=== PATIENT | female | born 1965 | race Caucasian/White ===

== ENCOUNTER → 2017-06-27 | Outpatient (CLI) | payer OTHER, BC ==
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
--- NOTE | 2017-06-27 11:38 | Diagnostic Imaging Report ---
EXAMINATION: Abdomen supine and erect. INDICATION: Pain There are no prior studies available for comparison. There is some gas in both the large and small bowel in a nonspecific fashion. There is no evidence for a bowel obstruction. There is no mass or organomegaly appreciated. There is a 1 CM well-defined oval calcification overlying the left upper quadrant. This is of uncertain etiology. This does not have the typical appearance for nephrolithiasis. If further study is desired, then CT would be recommended. The osseous structures, where visualized are intact. IMPRESSION: 1. The bowel gas pattern is nonspecific. There is no acute abnormality identified. 2. The benign-appearing 1 CM calcification overlying the left upper quadrant is of uncertain etiology. Additional considerations as above. Dictated by: Dictated on workstation # [id number]
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
== END ==
LOC: RAD 10:25
PROVIDERS: ATTEND Nurse Practitioner Family
DX: R07.89 Other chest pain (principal); R10.12 Left upper quadrant pain; R14.0 Abdominal distension (gaseous); V89.2XXA Person injured in unspecified motor-vehicle accident, traffic, initial encounter
CPT/HCPCS: 71046; 74019; 76705

== ENCOUNTER → 2017-07-03 | Outpatient (CLI) | payer BC, OTHER ==
[~2017-07-03] MED LIST: CATHETER FLUSH 10 ML SYR IV PRN; IOHEXOL 350 MG/ML 100 ML (OMNIPAQUE 350) VIAL IV ONE; NS 100 ML (IVPB) BAG IV ONE
[2017-07-03 10:42] LABS: BUN/CREATININE RATIO 19; CREATININE SERUM 0.95 MG/DL (0.60-1.30); GFR ESTIMATED > 60
--- NOTE | 2017-07-03 13:44 | Diagnostic Imaging Report ---
PROCEDURE: CT of the abdomen with and without contrast and CT of the pelvis with contrast. TECHNIQUE: Precontrast acquisitions were acquired through the abdomen. Multiple contiguous axial images were obtained through the abdomen and pelvis after administration of intravenous contrast. INDICATION: Left upper quadrant nodule. FINDINGS: The abdomen exam performed on 06/27/17 noted a well-defined 1 cm oval calcification overlying the left upper quadrant. On this exam, that calcific density appears to represent a small pleural-based calcification deep in the left lung base. This calcification has a generally benign appearance. The lung bases are otherwise clear. On the pre-intravenous contrast series, there is no sign of nephrolithiasis. Following administration of contrast, there was excretion by both kidneys. The right kidney is slightly malrotated. There is a collection of parapelvic cysts along the anterior aspect of the right kidney. These cysts have a generally benign appearance. There is no evidence for a solid renal mass involving either kidney. The liver is of lower density than usually seen. 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 The spleen, pancreas, adrenals, gallbladder, aorta and inferior vena cava show no sign of an acute abnormality. The stomach is partially filled with fluid and consequently difficult to assess. 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 The urinary bladder is grossly unremarkable. The appendix was not well visualized but there are no indirect signs of acute appendicitis. The bone windows show no sign of a fracture or of a destructive lesion. IMPRESSION: 1. The oval calcification overlying the left upper quadrant seen on the recent abdomen exam is felt to be related to a calcification along the posterior aspect of the left lung base. This calcification is most likely a benign process. 2. There is no acute abnormality of the abdomen or pelvis. 3. The appearance of the liver does suggest fatty metamorphosis. 4. The right kidney is slightly malrotated but there is no obstruction of the right collecting system. 5. 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 Dictated by: Dictated on workstation # [id number]
== END ==
LOC: RAD 10:07
PROVIDERS: ATTEND Nurse Practitioner Family
DX: R19.02 Left upper quadrant abdominal swelling, mass and lump (principal); R91.8 Other nonspecific abnormal finding of lung field; Q51.0 Agenesis and aplasia of uterus
CPT/HCPCS: 36415; 74178; 82565; 84520

== ENCOUNTER → 2018-05-20 | Outpatient (CLI) | payer BC ==
--- NOTE | 2018-05-21 13:15 | Diagnostic Imaging Report ---
INDICATION: Routine screening. No prior mammograms are available for comparison. 2-D and 3-D bilateral screening mammography was performed with computer-aided Detection (CAD) system. FINDINGS: Both breasts are heterogeneously dense, limiting the sensitivity of mammography. No mass or malignant-appearing microcalcifications are seen. The axillae are unremarkable. IMPRESSION: No mammographic features suspicious for malignancy are identified. ACR BI-RADS Category 1: Negative. Result letter will be mailed to the patient. Note: At least 10% of breast cancer is not imaged by mammography. Dictated by: Dictated on workstation # [id number]
== END ==
LOC: RAD 14:35
PROVIDERS: ATTEND Family Medicine
DX: Z12.31 Encounter for screening mammogram for malignant neoplasm of breast (principal)
CPT/HCPCS: 77067

== ENCOUNTER → 2019-06-05 | Outpatient (CLI) | payer BC ==
--- NOTE | 2019-06-06 12:43 | Diagnostic Imaging Report ---
EXAMINATION: Digital mammogram bilateral screening. INDICATION: Screening. COMPARISON: This study was compared to the prior exams of 05/20/2018. At this time, there are no current complaints. The current study was also evaluated with a Computer Aided Detection (CAD) system. 3-D tomosynthesis was also performed and reviewed. FINDINGS: The fibroglandular tissue in both breasts is heterogeneously dense. This does limit the sensitivity of this exam. On the craniocaudad view of the right breast, approximately 5 cm from the nipple, there is a poorly defined 1.6 cm area of increased density in the lateral aspect of the breast. This finding cannot be identified with certainty on the MLO view and may be secondary to superimposition. Even so, I would recommend that a compression view of this area be obtained in the CC projection as well as a true lateral view of the right breast for further study. Ultrasound should also be performed. The left breast is unchanged. IMPRESSION: Additional mammographic views and ultrasound of the right breast would be recommended for further study. ACR BI-RADS Category 0: Incomplete. (Needs additional imaging evaluation). Result letter will be mailed to the patient. Note: At least 10% of breast cancer is not imaged by mammography. Dictated by: Dictated on workstation # [id number]
== END ==
LOC: RAD 10:50
PROVIDERS: ATTEND Family Medicine
DX: Z12.31 Encounter for screening mammogram for malignant neoplasm of breast (principal)
CPT/HCPCS: 77067

== ENCOUNTER → 2019-06-25 | Outpatient (CLI) | payer BC ==
--- NOTE | 2019-06-25 08:40 | Diagnostic Imaging Report ---
INDICATION: Right breast density. Patient presents for additional views. COMPARISON: Correlation is made with the prior screening mammogram from 06/05/2019. TECHNIQUE: Unilateral right 2D and 3D diagnostic mammography was performed. This included rolled CC, spot compression CC, and conventional 90 degree lateral views with the use of CAD. FINDINGS: The right breast remains heterogeneously dense. There appears to be some dispersion of fibroglandular elements in the outer right breast. No definite underlying mass is identified. Even so, ultrasound of this area is recommended. No suspicious calcifications are seen. IMPRESSION: There is mild residual density in the lower and outer right breast, likely superimposed tissue. Even so, sonographic interrogation of the lower outer right breast 5 cm from the nipple is recommended and will be performed today. ACR BI-RADS Category 0: Incomplete. (Needs additional imaging evaluation). Result letter will be mailed to the patient. Note: At least 10% of breast cancer is not imaged by mammography. Dictated by: Dictated on workstation # [id number]
--- NOTE | 2019-06-25 09:04 | Diagnostic Imaging Report ---
INDICATION: Right breast density. COMPARISON: Correlation is made with the diagnostic mammogram from earlier this same day as well as the screening mammogram from 06/05/2019. TECHNIQUE: Sonographic interrogation of the outer right breast at approximately the 6-10 o'clock location 5 cm from the nipple was performed. FINDINGS: No sonographic abnormality is seen. No solid or cystic masses are seen. IMPRESSION: No sonographic abnormality is detected. The patient may return to routine annual screening mammography. ACR BI-RADS Category 1: Negative. Result letter will be mailed to the patient. Note: At least 10% of breast cancer is not imaged by mammography. Dictated by: Dictated on workstation # [id number]
== END ==
LOC: RAD 08:00
PROVIDERS: ATTEND Nurse Practitioner Family
DX: R92.2 Inconclusive mammogram (principal)

== ENCOUNTER → 2021-07-05 | Outpatient (CLI) | payer BC ==
--- NOTE | 2021-07-05 14:00 | Diagnostic Imaging Report ---
INDICATION: Routine screening. COMPARISON: 06/05/2019 and 05/20/2018. TECHNIQUE: 2D and 3D bilateral screening mammography was performed with CAD. FINDINGS: Both breasts are heterogeneously dense, limiting the sensitivity of mammography. The parenchymal pattern is stable. No dominant mass or malignant-appearing microcalcifications are seen. The axillae are unremarkable. IMPRESSION: No mammographic features suspicious for malignancy are identified. ACR BI-RADS Category 1: Negative. Result letter will be mailed to the patient. Note: At least 10% of breast cancer is not imaged by mammography. Dictated by: Dictated on workstation # [id number]
== END ==
LOC: RAD 13:15
PROVIDERS: ATTEND Family Medicine
DX: Z12.31 Encounter for screening mammogram for malignant neoplasm of breast (principal)
CPT/HCPCS: 77063; 77067

== ENCOUNTER → 2022-06-30 | Outpatient (CLI) | payer BC ==
--- NOTE | 2022-07-07 08:51 | Diagnostic Imaging Report ---
Indication: Routine screening. Comparison is made with prior mammograms from 07/05/2021 and 06/05/2019. 2-D and 3-D bilateral screening mammography was performed with CAD. Both breasts are heterogeneously dense, limiting the sensitivity of mammography. Benign calcifications are noted bilaterally. No mass or malignant-appearing microcalcifications are seen. Axillae are unremarkable. IMPRESSION: BI-RADS Category 2 No mammographic features suspicious for malignancy are identified. ACR BI-RADS Category 2: Benign findings. Result letter will be mailed to the patient. Note: At least 10% of breast cancer is not imaged by mammography. Dictated by: Dictated on workstation # [id number]
== END ==
LOC: RAD 07:30
PROVIDERS: ATTEND Family Medicine
DX: Z12.31 Encounter for screening mammogram for malignant neoplasm of breast (principal)